=== PATIENT | female | born 1960 | race African-American/Black ===

== ENCOUNTER 2018-06-20 12:20 | Inpatient (IN) | payer MEDICAID ==
[~2018-06-20] VITALS: Ht 167.6 cm; Wt 114.8 kg
[~2018-06-20 12:20] MED LIST: ACET-2853 PO; ATEN-175 PO; CYCL10TA7 PO; HYDR50CA5 PO; SIMV10TA6 MT
[2018-06-20] MEDS ORDERED: ASPIRIN 81MG TABLET PO ONE (13:30)
[2018-06-20] MEDS ORDERED: AMLODIPINE 5MG TABLET PO ONE (13:45)
[2018-06-20 14:23] LABS: BASOPHILS % 0.2 % (0.0-2.0); CHLORIDE 103 mEq/L (98-107); EOSINOPHILS % 3.7 % (0.0-5.0); HEMATOCRIT. 42.9 % (36.0-48.0); HEMOGLOBIN. 14.6 g/dL (12.0-16.0); LYMPHOCYTES % 50.7 % (20.0-50.0); MEAN CORPUSCULAR HEMOGLOBIN 29.7 pg (28.0-32.0); MEAN CORPUSCULAR VOLUME 87.2 fL (81.0-99.0); MEAN PLATELET VOLUME 8.2 fl (7.4-10.4); MONOCYTES % 7.3 % (2.0-8.0); NEUTROPHILS % 38.1 % (40.0-76.0); PLATELET 346 x1000/uL (130-400); RED BLOOD CELL COUNT 4.91 mill/uL (4.2-5.4); RED CELL DISTRIBUTION WIDTH 13.8 % (11.6-14.6)
[2018-06-20 14:29] LABS: D-DIMER < 0.19 mg/L FEU (<0.50); INR 1.1; PARTIAL THROMBOPLASTIN TIME 27.5 sec (23.4-31.0); PROTHROMBIN TIME 10.7 sec (9.1-11.1)
[2018-06-20] MEDS ORDERED: LORAZEPAM 0.5MG TABLET PO PRN (17:30)
[2018-06-20] MEDS ORDERED: ONDANSETRON HCL 4MG/2ML INJ IV PRN (17:30)
[2018-06-20] MEDS ORDERED: DOCUSATE SODIUM 100MG CAPSULE PO PRN (17:30)
[2018-06-20] MEDS ORDERED: CLONIDINE 0.1MG TABLET PO PRN (17:30)
[2018-06-20] MEDS ORDERED: ACETAMINOPHEN 325MG TABLET PO PRN (17:30)
[2018-06-20 20:00] VITALS: BP 171/87
[2018-06-20 22:00] VITALS: BP_SYST 168; BP_SYST 171; BP_DIAS 85; BP_DIAS 87
[2018-06-20] MEDS: AMLODIPINE 10MG TABLET PO SCH (23:06)
[2018-06-21] VITALS: BP 104/50
[2018-06-21 04:00] VITALS: BP 117/67
[2018-06-21 06:49] LABS: BASOPHILS % 1.1 % (0.0-2.0); EOSINOPHILS % 2.8 % (0.0-5.0); HEMATOCRIT. 41.7 % (36.0-48.0); LYMPHOCYTES % 44.6 % (20.0-50.0); MEAN CORPUSCULAR HEMOGLOBIN 29.4 pg (28.0-32.0); MEAN CORPUSCULAR VOLUME 87.7 fL (81.0-99.0); MEAN PLATELET VOLUME 8.1 fl (7.4-10.4); NEUTROPHILS % 43.5 % (40.0-76.0); PLATELET 329 x1000/uL (130-400); RED BLOOD CELL COUNT 4.76 mill/uL (4.2-5.4); RED CELL DISTRIBUTION WIDTH 13.9 % (11.6-14.6)
[2018-06-21 06:59] LABS: CHLORIDE 105 mEq/L (98-107)
[2018-06-21 07:21] LABS: T4 FREE 1.04 ng/dL (0.76-1.46)
[2018-06-21 08:00] VITALS: BP 127/61
[2018-06-21] MEDS ORDERED: ASPIRIN 81MG EC TABLET PO SCH (09:00)
[2018-06-21] MEDS: AMLODIPINE 10MG TABLET PO SCH (09:23)
[2018-06-21 11:24] VITALS: BP 125/78
[2018-06-21 12:00] VITALS: BP 125/78
[2018-06-21] MEDS ORDERED: ATORVASTATIN CALCIUM 20MG TABLET PO SCH (21:00)
== END 2018-06-21 12:30 | disposition home or self-care (01) | DRG 203 ==
LOC: ER 13:21 → 7WST 16:07 → EDBEDREQ 16:22 → SUPCPDRO 17:17 → ENRESERV 20:24
PROVIDERS: ADMIT Hospitalist; ATTEND Hospitalist
DX: M94.0 Chondrocostal junction syndrome [Tietze] (principal); E78.5 Hyperlipidemia, unspecified; F41.1 Generalized anxiety disorder; R07.89 Other chest pain; F17.210 Nicotine dependence, cigarettes, uncomplicated; I10 Essential (primary) hypertension; Z82.49 Family history of ischemic heart disease and other diseases of the circulatory system; Z88.0 Allergy status to penicillin; Z79.899 Other long term (current) drug therapy; Z98.51 Tubal ligation status
CPT/HCPCS: 36415; 71045; 80053; 83880; 84439; 84443; 84484; 85025; 85379; 85610; 85730; 86850; 86900; 93005; 93306; 99285

== ENCOUNTER 2018-07-08 16:37 | Emergency (ER) | payer MEDICAID ==
[~2018-07-08] VITALS: Ht 167.6 cm; Wt 111.6 kg
[2018-07-08] MEDS ORDERED: PROP10TA10 MT (17:15)
[2018-07-08] MEDS ORDERED: ESCI5TAB10 PO (17:16)
[2018-07-08] MEDS ORDERED: LORA0.5T2 PO (17:17)
[2018-07-08] MEDS ORDERED: LORAZEPAM 1MG TABLET PO ONE (17:45)
[2018-07-08 19:18] VITALS: BP 138/79
== END 2018-07-08 18:50 | disposition home or self-care (01) ==
LOC: ER 16:37
DX: F41.9 Anxiety disorder, unspecified (principal); I10 Essential (primary) hypertension; R51 Headache; R07.89 Other chest pain; Z98.51 Tubal ligation status; Z98.890 Other specified postprocedural states; Z87.891 Personal history of nicotine dependence; Z79.899 Other long term (current) drug therapy; Z88.0 Allergy status to penicillin
CPT/HCPCS: 99283

== ENCOUNTER 2019-10-22 00:58 | Emergency (ER) | payer MEDICAID ==
[~2019-10-22] VITALS: Ht 167.6 cm; Wt 124.0 kg
[~2019-10-22 00:58] MED LIST changes: -ACET-2853 PO; +ACET650T37 PO; +ESCI5TAB12 PO; +LORA0.5T2 PO; +PROP10TA10 MT; -SIMV10TA6 MT; +SIMV10TA97 MT
[2019-10-22 06:30] VITALS: BP 143/80
== END 2019-10-22 06:34 | disposition home or self-care (01) ==
LOC: ER 00:58
DX: I10 Essential (primary) hypertension (principal); R07.89 Other chest pain; R42 Dizziness and giddiness; Z98.51 Tubal ligation status; Z98.890 Other specified postprocedural states; Z87.891 Personal history of nicotine dependence; Z79.899 Other long term (current) drug therapy; Z88.0 Allergy status to penicillin
CPT/HCPCS: 71045; 93005; 99283

== ENCOUNTER 2020-06-05 04:06 | Emergency (ER) | payer MEDICAID, OTHER ==
[~2020-06-05] VITALS: Ht 162.6 cm; Wt 99.0 kg
[2020-06-05 06:04] LABS: CHLORIDE 106 mEq/L (98-107)
[2020-06-05] MEDS ORDERED: LORAZEPAM 1MG TABLET PO SCH (06:15)
[2020-06-05 06:16] LABS: BASOPHILS % 0.7 % (0.0-2.0); EOSINOPHILS % 2.4 % (0.0-5.0); HEMATOCRIT. 44.1 % (36.0-48.0); HEMOGLOBIN. 14.6 g/dL (12.0-16.0); LYMPHOCYTES % 39.9 % (20.0-50.0); MEAN CORPUSCULAR HEMOGLOBIN 29.2 pg (28.0-32.0); MEAN CORPUSCULAR VOLUME 88.2 fL (81.0-99.0); MEAN PLATELET VOLUME 8.2 fl (7.4-10.4); MONOCYTES % 6.7 % (2.0-8.0); NEUTROPHILS % 50.3 % (40.0-76.0); PLATELET 343 x1000/uL (130-400); RED CELL DISTRIBUTION WIDTH 14.3 % (11.6-14.6)
[2020-06-05 09:42] VITALS: BP 141/79
== END 2020-06-05 09:52 | disposition home or self-care (01) ==
LOC: ER 04:06
DX: F41.9 Anxiety disorder, unspecified (principal); R51 Headache; R11.0 Nausea; E11.9 Type 2 diabetes mellitus without complications; E78.00 Pure hypercholesterolemia, unspecified; I10 Essential (primary) hypertension; Z88.0 Allergy status to penicillin; Z79.899 Other long term (current) drug therapy; Z98.890 Other specified postprocedural states; Z98.51 Tubal ligation status
CPT/HCPCS: 36415; 71045; 80053; 83880; 84484; 85025; 93005; 99285